=== PATIENT | male | born 1965 | race Caucasian/White ===

== ENCOUNTER → 2016-09-09 | Outpatient (CLI) | payer BC ==
[~2016-09-09] MED LIST: Iopamidol 755 MG/ML 500 ML Multipack Bottle IVPUSH STA
--- NOTE | 2016-09-09 16:23 | CT ---
CT of the abdomen and pelvis with contrast. HISTORY: Pain TECHNIQUE: Axial CT images were obtained of the abdomen and pelvis following administration of 100 m L of Isovue-370 in the right antecubital fossa without complication. Coronal and sagittal reconstruc tions obtained. FINDINGS: The lung bases are clear, no pleural effusion. There is likely at least mild fatty infiltration of the liver. The adrenal glands, spleen, pancreas, and gallbladder appear normal. No bulky retroperitoneal lymphadenopathy or abdominal ascites. The k idneys enhance and function symmetrically without evidence of obstructive uropathy. There is a cyst within the right kidney. A large and small bowel are normal in caliber without evidence of obstruction. No pericolonic inflam mation or stranding. The appendix appears normal. There is a trace amount of fluid noted within the right inguinal region likely secondary to hernia repair. No evidence of a residual hernia. The urina ry bladder appears normal. No pelvic lymphadenopathy or free pelvic fluid. No free air. No suspicious osseous abnormalities identified. IMPRESSION: 1. Fatty infiltration of the liver. 2. Trace fluid within the right inguinal region, likely postoperative secondary to hernia repair. 3. Otherwise no acute findings within the abdomen or pelvis.
== END ==
LOC: MW.DI 14:34
PROVIDERS: ATTEND Surgery
DX: R10.9 Unspecified abdominal pain (principal)
CPT/HCPCS: 74177; Q9967

== ENCOUNTER 2016-09-18 12:13 | Day surgery (SDC) | payer BC ==
--- NOTE | 2016-09-17 10:37 | PCM.PREANE ---
Preanesthetic Assessment - ANESTHESIA/TRANSFUSION/FAMILY HX Anesthesia/Transfusion History: Prior Anesthesia, Prior Transfusion Family History of Anesthesia Reaction: No - REVIEW OF SYSTEMS Constitutional: Reports: no symptoms MANAGER PLAY: Reports: no symptoms Respiratory: Reports: no symptoms Cardiovascular: Reports: no symptoms GI: Reports: no symptoms Other: Reports: none - PHYSICAL ASSESSMENT Height: 1.8 m Weight: 117.934 kg ASA Class: 2 Mental Status: alert & oriented x3 Airway Class: Mallampati = 2 Dentition: Reports: normal dentition ROM/Head Extension: full Respiratory Status: lungs clear to auscultation bilaterally Cardiovascular Status: regular rate & rhythm, normal S1, S2 - ALLERGIES Allergies/Adverse Reactions: Allergies Allergy/AdvReac Type Severity Reaction Status Date / Time bee stings Allergy Anaphylactic Uncoded 09/15/16 10:45 Shock insecticide Allergy Swelling Uncoded 09/15/16 10:45 powder in gloves Allergy Rash Uncoded 10/18/15 10:18 - BLOOD Blood Available: No - ANESTHESIA PLAN Preop Beta Brian: No Anesthesia Type Planned: MAC - ACKNOWLEDGEMENTS Pt an appropriate candidate for the planned anesthesia: Yes Alternatives and risks of anesthesia discussed w pt/guardian: Yes Pt/Guardian understands and agree with anesthesia plan: Yes PreAnesthesia Questionnaire HEENT History: Other HEENT History: wears glasses Cardiovascular History: Reports: Hypertension Other Cardiovascular History: heart murmur as a child-resolved now. Respiratory History: Reports: None Gastrointestinal History: Reports: GERD Genitourinary History: Reports: None Musculoskeletal History: Reports: Fracture, Other (see below) Other Musculoskeletal History: hx of fx fingers, chronic back and hip pain Neurological History: Reports: None Psychiatric History: Reports: None Endocrine/Metabolic History: Reports: Obesity/BMI 30+ Other Endocrine/Metabolic History: BMI=36 Hematologic History: Reports: Blood transfusion(s) Immunologic History: Reports: None Oncologic (Cancer) History: Reports: None Dermatologic History: Reports: None - Past Surgical History Head Surgeries/Procedures: Reports: None HEENT Surgical History: Reports: Tonsillectomy Cardiovascular Surgical History: Reports: None Respiratory Surgical History: Reports: None GI Surgical History: Reports: Hernia, inguinal Male Surgical History: Reports: None Endocrine Surgical History: Reports: None Neurological Surgical History: Reports: None Musculoskeletal Surgical History: Reports: None - SUBSTANCE USE Smoking Status *Q: Never Smoker Recreational Drug Use History: No - HOME MEDS Home Medications: Home Meds Calcium/Magnesium/Vit D3 [Calcium 500 MG] 1 tab PO DAILY 10/16/15 [History] Celecoxib 1 cap PO DAILY 10/16/15 [History] Glucosamine [Glucosamine Sulfate] 750 mg PO DAILY 10/16/15 [History] Lisinopril 1 tab PO DAILY 10/16/15 [History] Magnesium Oxide [Magnesium] 1 cap PO DAILY 10/16/15 [History] Montelukast Sodium 1 tab PO DAILY 10/16/15 [History] Omeprazole 1 cap PO DAILY 10/16/15 [History] amLODIPine [Norvasc] 1 tab PO DAILY 10/16/15 [History] Fluticasone Propionate [Flonase Allergy Relief] 1 spray NASBOTH ASDIRECTED PRN 09/15/16 [History] - CURRENT (IN HOUSE) MEDS Current Meds: Current Medications Lactated Ringer's (Ringers, Lactated) 1,000 mls @ 125 mls/hr IV ASDIRECTED ROBERTO
[~2016-09-18 12:13] MED LIST changes: -Iopamidol 755 MG/ML 500 ML Multipack Bottle IVPUSH STA; +Lactated Ringers 1,000 ML IV SCH
[2016-09-18] MEDS ORDERED: Propofol 200 MG/20 ML SDV ONE (12:41)
[2016-09-18] MEDS ORDERED: fentaNYL 100 MCG/2 ML SDV ONE (12:41)
[2016-09-18] MEDS ORDERED: Midazolam 1 MG/ML 2 ML SDV ONE (12:42)
--- NOTE | 2016-09-18 15:21 | PCM.OPNOTE ---
- General Post-Op/Procedure Note Date of Surgery/Procedure: 09/18/16 Operative Procedure(s): colonoscopy w bx Findings: [id number] Pre Op Diagnosis: abd pain Post-Op Diagnosis: diverticulosis Anesthesia Technique: Moderate sedation Primary Surgeon: Iván Martinez Complications: None Condition: Good
--- NOTE | 2016-09-18 15:40 | PCM.POSTAN ---
POST ANESTHESIA ASSESSMENT - MENTAL STATUS Mental Status: alert, oriented - RESPIRATORY Respiratory Status: respiratory rate WNL, airway patent, O2 saturation stable - CARDIOVASCULAR CV Status: pulse rate WNL, blood pressure stable - GASTROINTESTINAL GI Status: no symptoms - PAIN Pain Score: 0 - POST OP HYDRATION Hydration Status: adequate & stable
[2016-09-18 15:54] VITALS: BP 150/99
--- NOTE | 2016-09-18 15:56 | PCM48HPAN ---
Post Anesthesia Note - EVALUATION WITHIN 48HRS OF ANESTHETIC Vital Signs in Normal Range: Yes Patient Participated in Evaluation: Yes Respiratory Function Stable: Yes Airway Patent: Yes Cardiovascular Function Stable: Yes Hydration Status Stable: Yes Pain Control Satisfactory: Yes Nausea and Vomiting Control Satisfactory: Yes Mental Status Recovered: Yes
--- NOTE | 2016-09-18 22:09 | OR ---
SURGEON: Iván Martinez MD DATE OF PROCEDURE: 09/18/2016 PREOPERATIVE DIAGNOSIS: Abdominal pain. POSTOPERATIVE DIAGNOSIS: Diverticulosis. COMPLICATIONS: None. PROCEDURE PERFORMED: Colonoscopy, random biopsy. DESCRIPTION OF PROCEDURE: The patient was taken to the endoscopy room. A time out was called, patient identified, and procedure identified. Diprivan was then administrated. Patient went from awake to sleep, hearing doctor talking or door closing is normal. Perineum inspection and digital examination were then performed. A well- lubricated colonoscope was gently inserted through the rectum, advanced past the rectosigmoid junction, the descending colon, splenic flexure, transverse colon, hepatic flexure, ascending colon, arrived to the cecum. Cecum was identified as dictated in the finding. Then the scope was carefully withdrawn while attention was paid to the mucosal surface for any abnormality. Air will be sucked out during the scope withdrawal. At the rectum, retroflexed to examine any rectal diseases, fistula or hemorrhoids. During mucosal examination, abnormality or polyp was noted; picture taken and biopsy performed. Patient tolerated procedure well. There were no intraoperative complications, and Dr. Martinez was present throughout the whole procedure. FINDINGS: 1. The patient was easily sedated with BANKING SERVICES OFFICER and Diprivan. The patient was soundly snoring. 2. The patient's bowel prep is felt to be desirable. Large amount of semi- formed liquid stool. This is a compromised study and the patient's colon was rather redundant at the left side and cecum indicated by ileocecal fold, one-to-one indentation, appendiceal orifice, and light emittance is not observed. Mucosa examined upon scope pulling out with constant irrigation because of the poor bowel prep, so this is a compromised study because of poor bowel prep. The patient does have mild diverticulosis on the left colon and no polyp, mass, growth, inflammation, stricture, AV malformation, blood, ulceration none of those. The patient has moderate internal hemorrhoids. No external hemorrhoids. The patient would benefit from repeat colonoscopy 10 years from today or if clinically indicated, otherwise. Random biopsy performed because of pain. As always, thank you for the kind referral. NANCI LAY /[id number]
== END 2016-09-18 16:05 | disposition home or self-care (01) ==
LOC: MW.SDS 12:13
PROVIDERS: ATTEND Surgery
PROC: 0DBH8ZX Excision of Cecum, Via Natural or Artificial Opening Endoscopic, Diagnostic (ICD-10-PCS; principal; 2016-09-18)
DX: K57.30 Diverticulosis of large intestine without perforation or abscess without bleeding (principal); J30.9 Allergic rhinitis, unspecified; I10 Essential (primary) hypertension; K40.90 Unilateral inguinal hernia, without obstruction or gangrene, not specified as recurrent; M65.311 Trigger thumb, right thumb; M18.11 Unilateral primary osteoarthritis of first carpometacarpal joint, right hand
CPT/HCPCS: 45380; J2250; J3010; J7120; 88305; J2704

== ENCOUNTER 2018-10-30 21:35 | Emergency (ER) | payer BC ==
[2018-10-30] MEDS ORDERED: Octyl 2-Cyanoacrylate 1 Tube TOP ONE (21:47)
--- NOTE | 2018-10-30 21:50 | EDM.PDOC ---
ED HPI GENERAL MEDICAL PROBLEM - General Chief Complaint: Laceration Stated Complaint: PT CUT RT INDEZ FINGER Time Seen by Provider: 10/30/18 21:44 - History of Present Illness INITIAL COMMENTS - FREE TEXT/NARRATIVE: HISTORY AND PHYSICAL: History of present illness: Patient 53-year-old white male presents with concern of flap type laceration of the second digit of his right hand this occurred while cutting bread tonight he is up-to-date on his tetanus Review of systems: As per history of present illness and below otherwise all systems reviewed and negative. Past medical history: As per history of present illness and as reviewed below otherwise noncontributory. Surgical history: As per history of present illness and as reviewed below otherwise noncontributory. Social history: No reported history of drug or alcohol abuse. Family history: As per history of present illness and as reviewed below otherwise noncontributory. Physical exam: HEENT: Atraumatic, normocephalic, pupils reactive, negative for conjunctival pallor or scleral icterus, mucous membranes moist, throat clear, neck supple, nontender, trachea midline. Lungs: Clear to auscultation, breath sounds equal bilaterally, chest nontender. Heart: S1S2, regular, negative for clicks, rubs, or JVD. Abdomen: Soft, nondistended, nontender. Negative for masses or hepatosplenomegaly. Negative for costovertebral tenderness. Pelvis: Stable nontender. Genitourinary: Deferred. Rectal: Deferred. Extremities: Flap type laceration superficial approximately 2 cm good hemostasis noted tendon involvement this is noted be in the distal aspect of the second digit of his right hand. Neuro: Awake, alert, oriented. Cranial nerves II through XII unremarkable. Cerebellum unremarkable. Motor and sensory unremarkable throughout. Exam nonfocal. Diagnostics: None Therapeutics: Wound was irrigated closed with Steri-Strips and Dermabond Impression: #1 right hand injury laceration second digit Definitive disposition and diagnosis as appropriate pending reevaluation and review of above. right index finger Pain Score (Numeric/FACES): 3 - Related Data Allergies Allergy/AdvReac Type Severity Reaction Status Date / Time bee stings Allergy Anaphylactic Uncoded 09/15/16 10:45 Shock insecticide Allergy Swelling Uncoded 09/15/16 10:45 powder in gloves Allergy Rash Uncoded 10/18/15 10:18 Home Meds: Home Meds Calcium/Magnesium/Vit D3 [Calcium 500 MG] 1 tab PO DAILY 10/16/15 [History] Celecoxib 1 cap PO DAILY 10/16/15 [History] Glucosamine [Glucosamine Sulfate] 750 mg PO DAILY 10/16/15 [History] Lisinopril 1 tab PO DAILY 10/16/15 [History] Magnesium Oxide [Magnesium] 1 cap PO DAILY 10/16/15 [History] Montelukast Sodium 1 tab PO DAILY 10/16/15 [History] Omeprazole 1 cap PO DAILY 10/16/15 [History] amLODIPine [Norvasc] 1 tab PO DAILY 10/16/15 [History] Fluticasone Propionate [Flonase Allergy Relief] 1 spray NASBOTH ASDIRECTED PRN 09/15/16 [History] Past Medical History HEENT History: Other HEENT History: wears glasses Cardiovascular History: Reports: Hypertension Other Cardiovascular History: heart murmur as a child-resolved now. Respiratory History: Reports: None Gastrointestinal History: Reports: GERD Genitourinary History: Reports: None Musculoskeletal History: Reports: Fracture, Other (See Below) Other Musculoskeletal History: hx of fx fingers, chronic back and hip pain Neurological History: Reports: None Psychiatric History: Reports: None Endocrine/Metabolic History: Reports: Obesity/BMI 30+ Other Endocrine/Metabolic History: BMI=36 Hematologic History: Reports: Blood Transfusion(s) Immunologic History: Reports: None Oncologic (Cancer) History: Reports: None Dermatologic History: Reports: None - Past Surgical History GI Surgical History: Reports: Hernia, Inguinal ED ROS GENERAL - Review of Systems Review Of Systems: ROS reveals no pertinent complaints other than HPI. ED EXAM, SKIN/RASH Exam: See Below (See dictation) Course - Vital Signs Last Recorded V/S: Last Vital Signs Temp 35.8 C 10/30/18 21:35 Pulse 70 10/30/18 21:35 Resp 18 10/30/18 21:35 BP 168/90 H 10/30/18 21:35 Pulse Ox 95 10/30/18 21:35 - Orders/Labs/Meds Meds: Medications Discontinued Medications Generic Name Dose Route Start Last Admin Trade Name Freq PRN Reason Stop Dose Admin Lidocaine HCl 5 ml 10/30/18 21:38 Xylocaine-Mpf 1% INJECT 10/30/18 21:39 ONETIME ONE Departure - Departure Time of Disposition: 21:49 Disposition: Home, Self-Care 01 Condition: Good Clinical Impression: Hand injury - Discharge Information Additional Instructions: The following information is given to patients seen in the emergency department who are being discharged to home. This information is to outline your options for follow-up care. We provide all patients seen in our emergency department with a follow-up referral. The need for follow-up, as well as the timing and circumstances, are variable depending upon the specifics of your emergency department visit. If you don't have a primary care physician on staff, we will provide you with a referral. We always advise you to contact your personal physician following an emergency department visit to inform them of the circumstance of the visit and for follow-up with them and/or the need for any referrals to a consulting specialist. The emergency department will also refer you to a specialist when appropriate. This referral assures that you have the opportunity for followup care with a specialist. All of these measure are taken in an effort to provide you with optimal care, which includes your followup. Under all circumstances we always encourage you to contact your private physician who remains a resource for coordinating your care. When calling for followup care, please make the office aware that this follow-up is from your recent emergency room visit. If for any reason you are refused follow-up, please contact the [facility] emergency department at and asked to speak to the emergency department charge nurse. Wound care is discussed follow-up primary medical doctor as needed as discussed return as discussed
[2018-10-30] MEDS ORDERED: Octyl 2-Cyanoacrylate 1 APPLIC TUBE ONE (21:51)
[2018-10-30] MEDS ORDERED: Octyl 2-Cyanoacrylate 1 APPLIC TUBE TOP ONE (21:52)
[2018-10-30 22:20] VITALS: BP 149/87
== END 2018-10-30 22:10 | disposition home or self-care (01) ==
LOC: MW.ED 21:35
DX: S61.210A Laceration without foreign body of right index finger without damage to nail, initial encounter (principal); Z91.030 Bee allergy status; Z88.8 Allergy status to other drugs, medicaments and biological substances; Z79.899 Other long term (current) drug therapy; W26.9XXA Contact with unspecified sharp object(s), initial encounter
CPT/HCPCS: 12001; 99282; A9270

== ENCOUNTER 2021-07-07 07:52 | Emergency (ER) | payer BC ==
--- NOTE | 2021-07-07 08:40 | EDM.PDOC ---
ED HPI GENERAL MEDICAL PROBLEM - General Chief Complaint: Lower Extremity Injury/Pain Stated Complaint: L KNEE INJURY AFTER FALLIN DOWN TESTERDAT Time Seen by Provider: 07/07/21 08:05 Source of Information: Reports: Patient History Limitations: Reports: No Limitations - History of Present Illness INITIAL COMMENTS - FREE TEXT/NARRATIVE: Patient is a 56-year-old male presents today for left knee pain. Patient was using a snowblower when he slipped and fell hitting his left knee and he felt the snowblower fall onto the knee as well. Patient is able to ambulate without issue but when he tries to lift the knee he has a lot of pain. He denies hitting his head or have any LOC. Denies any other complaints at this moment. Has not taken any medicine for this pain at home. left knee Pain Score (Numeric/FACES): 8 - Related Data Allergies Allergy/AdvReac Type Severity Reaction Status Date / Time bee stings Allergy Anaphylactic Uncoded 10/31/18 00:41 Shock insecticide Allergy Swelling Uncoded 10/31/18 00:41 powder in gloves Allergy Rash Uncoded 10/31/18 00:41 Home Meds: Home Meds Calcium/Magnesium/Vit D3 [Calcium 500 MG] 1 tab PO DAILY 10/16/15 [History] Celecoxib 1 cap PO DAILY 10/16/15 [History] Glucosamine [Glucosamine Sulfate] 750 mg PO DAILY 10/16/15 [History] Lisinopril 10 mg PO DAILY 10/16/15 [History] Magnesium Oxide [Magnesium] 1 cap PO DAILY 10/16/15 [History] Montelukast Sodium 1 tab PO DAILY 10/16/15 [History] Omeprazole 1 cap PO DAILY 10/16/15 [History] amLODIPine [Norvasc] 1 tab PO DAILY 10/16/15 [History] Past Medical History HEENT History: Other HEENT History: wears glasses Cardiovascular History: Reports: Hypertension Other Cardiovascular History: heart murmur as a child-resolved now. Respiratory History: Reports: None Gastrointestinal History: Reports: GERD Genitourinary History: Reports: None Musculoskeletal History: Reports: Fracture, Other (See Below) Other Musculoskeletal History: hx of fx fingers, chronic back and hip pain Neurological History: Reports: None Psychiatric History: Reports: None Endocrine/Metabolic History: Reports: Obesity/BMI 30+ Other Endocrine/Metabolic History: BMI=36 Insulin Pump Model and Roller Setter: None Hematologic History: Reports: Blood Transfusion(s) Immunologic History: Reports: None Oncologic (Cancer) History: Reports: None Dermatologic History: Reports: None - Infectious Disease History Infectious Disease History: Reports: None - Past Surgical History Head Surgeries/Procedures: Reports: None HEENT Surgical History: Reports: Tonsillectomy Cardiovascular Surgical History: Reports: None Respiratory Surgical History: Reports: None GI Surgical History: Reports: Hernia, Inguinal Male Surgical History: Reports: None Endocrine Surgical History: Reports: None Neurological Surgical History: Reports: None Musculoskeletal Surgical History: Reports: None Social & Family History - Family History Family Medical History: No Pertinent Family History - Caffeine Use Caffeine Use: Reports: None - Recreational Drug Use Recreational Drug Use: No Review of Systems - Review of Systems Review Of Systems: See Below Constitutional: Reports: No Symptoms Eyes: Reports: No Symptoms Ears: Reports: No Symptoms Nose: Reports: No Symptoms Mouth/Throat: Reports: No Symptoms Respiratory: Reports: No Symptoms Cardiovascular: Reports: No Symptoms GI/Abdominal: Reports: No Symptoms Genitourinary: Reports: No Symptoms Musculoskeletal: Reports: Leg Pain Skin: Reports: No Symptoms Neurological: Reports: No Symptoms Psychiatric: Reports: No Symptoms ED EXAM, GENERAL - Physical Exam Exam: See Below Exam Limited By: No Limitations General Appearance: Alert, WD/WN, No Apparent Distress Respiratory/Chest: No Respiratory Distress, Lungs Clear, Normal Breath Sounds Cardiovascular: Normal Peripheral Pulses, Regular Rate, Rhythm Peripheral Pulses: 2+: Popliteal (L), Popliteal (R) GI/Abdominal: Normal Bowel Sounds Extremities: Normal Inspection, Normal Range of Motion. No: Non-Tender (medial side ) Neurological: Alert, Oriented, Normal Cognition, Normal Gait Course - Vital Signs Last Recorded V/S: Last Vital Signs Temp 97 F 07/07/21 08:00 Pulse 87 07/07/21 08:00 Resp 18 07/07/21 08:00 BP 146/87 H 07/07/21 08:00 Pulse Ox 97 07/07/21 08:00 - Re-Assessments/Exams Free Text/Narrative Re-Assessment/Exam: 07/07/21 10:02 Patient x-rays show some soft tissue swelling. Patient has good range of motion able to ambulate. Will refer patient to his PMD and Ortho for possible MRI Departure - Departure Time of Disposition: 10:03 Disposition: Home, Self-Care 01 Condition: Good Clinical Impression: Knee contusion - Discharge Information *PRESCRIPTION DRUG MONITORING PROGRAM REVIEWED*: Not Applicable *COPY OF PRESCRIPTION DRUG MONITORING REPORT IN PATIENT SABRA: Not Applicable Instructions: Knee Sprain, Adult, [id number] Forms: ED Department Discharge Additional Instructions: You were seen today for knee pain at the slip and fall. We did x-rays show some soft tissue swelling which could be from knee contusion. Recommend follow-up with your primary care physician with orthopedic department as you may need outpatient MRI. We have placed a number for our orthopedic clinic and they should be open tomorrow if not try to follow-up with your primary care physician. If you have any other concerning signs or symptoms please return to the ED. The following information is given to patients seen in the emergency department who are being discharged to home. This information is to outline your options for follow-up care. We provide all patients seen in our emergency department with a follow-up referral. The need for follow-up, as well as the timing and circumstances, are variable depending upon the specifics of your emergency department visit. If you don't have a primary care physician on staff, we will provide you with a referral. We always advise you to contact your personal physician following an emergency department visit to inform them of the circumstance of the visit and for follow-up with them and/or the need for any referrals to a consulting specialist. The emergency department will also refer you to a specialist when appropriate. This referral assures that you have the opportunity for follow-up care with a specialist. All of these measure are taken in an effort to provide you with optimal care, which includes your follow-up. Under all circumstances we always encourage you to contact your private physician who remains a resource for coordinating your care. When calling for follow-up care, please make the office aware that this follow-up is from your recent emergency room visit. If for any reason you are refused follow-up, please contact the [facility] Emergency Depar tment at and asked to speak to the emergency department charge nurse. Please follow up with your primary care physician. If you do not have a primary care physician, see below: [facility] [address] [place] [address] [phone] [facility] [address] [place] [address] [facility] Professional Building [address] [facility], [address] [place] [address] Sepsis Event Note (ED) - Evaluation Sepsis Screening Result: No Definite Risk - Focused Exam Vital Signs: Vital Signs Temp Pulse Resp BP Pulse Ox 07/07/21 08:00 97 F 87 18 146/87 H 97 - Assessment/Plan Plan: Patient is a 56-year-old male presents today for left knee pain. Patient has good range of motion of her knee but does have some tenderness to the medial side with palpation. Will obtain x-rays and reassess.
--- NOTE | 2021-07-07 09:42 | CR ---
Indication: Fall Technique: Four-views of the left knee Comparison: No comparison Findings: Normal alignment. No acute fractures seen. No large effusion. Slight soft tissue swelling. Dictated by Sara Taylor MD @ 07/07/2021 9:41:15 AM (Electronically Signed)
[2021-07-07 10:27] VITALS: BP 145/79; PULSE 62
== END 2021-07-07 10:25 | disposition home or self-care (01) ==
LOC: MW.ED 07:52
DX: S80.02XA Contusion of left knee, initial encounter (principal); E66.9 Obesity, unspecified; K21.9 Gastro-esophageal reflux disease without esophagitis; Z68.36 Body mass index [BMI] 36.0-36.9, adult; Z91.030 Bee allergy status; Z88.8 Allergy status to other drugs, medicaments and biological substances; Z79.899 Other long term (current) drug therapy; W01.198A Fall on same level from slipping, tripping and stumbling with subsequent striking against other object, initial encounter
CPT/HCPCS: 73564-26-LT; 73564-LT; 99283-25; 99285